=== PATIENT | female | born 1960 | race Caucasian/White ===

== ENCOUNTER → 2022-11-28 | Day surgery (SDC) | payer BC ==
[~2022-11-28] MED LIST: ALLEGRA-D 12 H1 EACH PO; ALLERGY SHOT SC; ARIMIDEX1 MG PO; CEFTRIAXONE 1 GM VIAL ONE; DEXAMETHASONE SOD PHOS INJ 4 MG/ML SDV ONE; DYMISTA NASAL S23 GM INH; FENTANYL CITRATE/PF 100MCG/2 ML INJ ONE; LACTATED RINGER'S 1,000 ML ONE; LIDOCAINE HCL 2% LOCAL INJ 5 ML SDV VIAL INJ ONE; LINZESS72 MCG PO; MIDAZOLAM HCL 2 MG/2 ML VIAL ONE; ONDANSETRON HCL INJ 2MG/ML 2ML 2 MG/ML VIAL ONE; POVIDONE IODINE 0.05% 0.05 % ML PO ONE; PROBIOTIC & AC1 EACH PO; PROPOFOL IV EMULSION 10 MG/ML 20 ML VIAL ONE; SEVOFLURANE INHAL SOLN 250 ML PEN BTL ONE; SINGULAIR10 MG PO; VITAMIN B-121000 MCG PO; VITAMIN D3 COM1 EACH PO; VITAMIN E1000 UNI1 PO
[2022-11-28 08:28] VITALS: TEMP 97
[2022-11-28 09:21] VITALS: BP 127/73; PULSE 64; RESP 18; O2SAT 99
== END | disposition home or self-care (01) ==
LOC: OR 05:58
PROVIDERS: ATTEND Urology
DX: N20.0 Calculus of kidney (principal); R01.1 Cardiac murmur, unspecified; N39.0 Urinary tract infection, site not specified; N13.30 Unspecified hydronephrosis; Q62.11 Congenital occlusion of ureteropelvic junction; R35.1 Nocturia; K59.00 Constipation, unspecified; Z88.1 Allergy status to other antibiotic agents; Z88.2 Allergy status to sulfonamides; Z01.810 Encounter for preprocedural cardiovascular examination; Z01.818 Encounter for other preprocedural examination; Z79.899 Other long term (current) drug therapy; Z85.3 Personal history of malignant neoplasm of breast; Z92.3 Personal history of irradiation
CPT/HCPCS: 50590; 74018; 93005; J0696; J1100; J2001; J2250; J2405; J2704; J3010; J7121